=== PATIENT | female | born 2000 | race Two or more races ===

== ENCOUNTER → 2022-10-12 | Emergency (ER) | payer OTHER ==
[~2022-10-12] VITALS: Ht 167.6 cm; Wt 77.1 kg
[~2022-10-12] MED LIST: OSEL75CA PO; TUSSI PRES-B L480 ML PO
== END | disposition home or self-care (01) ==
LOC: ER 12:27
DX: B34.9 Viral infection, unspecified (principal); J10.1 Influenza due to other identified influenza virus with other respiratory manifestations; Z20.822 Contact with and (suspected) exposure to COVID-19

== ENCOUNTER 2023-06-25 14:14 | Outpatient (CLI) | payer OTHER | END 2023-06-25 14:28 | disposition home or self-care (01) | LOC: RAD 14:14 | DX: M99.01 Segmental and somatic dysfunction of cervical region (principal); M99.02 Segmental and somatic dysfunction of thoracic region; M99.03 Segmental and somatic dysfunction of lumbar region; M99.04 Segmental and somatic dysfunction of sacral region; M99.05 Segmental and somatic dysfunction of pelvic region ==

== ENCOUNTER 2024-07-01 11:56 | Emergency (ER) | payer OTHER ==
[~2024-07-01] VITALS: Ht 167.6 cm; Wt 74.8 kg
[2024-07-01 15:54] LABS: HEMATOCRIT 37.7 % (36.0-45.00); HEMOGLOBIN 12.8 g/dL (12.0-15.00); MEAN CELL VOLUME 88.2 fL (80.00-100.00); MEAN CORPUSCULAR HEMOGLOBIN 29.9 pg (27.00-32.0); MEAN CORPUSCULAR HGB CONC 33.9 g/dl (32.0-36.0); PLATELET COUNT 187 K/uL (150-450); RED BLOOD COUNT 4.28 M/uL (4.00-6.00); RED CELL DISTRIBUTION WIDTH 13.2 % (11.5-14.5)
[2024-07-01 16:09] LABS: CALCIUM 9.4 mg/dL (8.5-10.1); CREATININE SERUM 0.55 mg/dL (0.55-1.02); GFR 134.67; POTASSIUM 3.88 mEq/L (3.5-5.1)
== END 2024-07-01 17:25 | disposition home or self-care (01) ==
LOC: ER 11:58
DX: B34.9 Viral infection, unspecified (principal); I95.9 Hypotension, unspecified; R53.81 Other malaise